=== PATIENT | female | born 1985 | race Caucasian/White ===

== ENCOUNTER 2021-07-12 23:02 | Emergency (ER) | payer SELFPAY ==
[~2021-07-12] VITALS: Ht 162.6 cm; Wt 73.0 kg
[2021-07-12] MEDS ORDERED: SODIUM CHLORIDE 0.9% 1,000 ML IV ONE (23:45)
[2021-07-13] MEDS: IBUPROFEN 600MG TABLET PO STA ×2 (00:02→00:05)
[2021-07-13 04:37] VITALS: BP 105/53
== END 2021-07-13 05:08 | disposition home or self-care (01) ==
LOC: ER 23:02
DX: U07.1 COVID-19 (principal); Z88.5 Allergy status to narcotic agent
CPT/HCPCS: 71045; 87426; 96360; 96361; 99285; J7030

== ENCOUNTER 2023-10-31 19:53 | Emergency (ER) | payer OTHER ==
[~2023-10-31] VITALS: Ht 149.9 cm; Wt 70.0 kg
[2023-10-31 19:59] VITALS: O2SAT 100
[2023-10-31] MEDS: KETOROLAC 15MG/ML VIAL IV ONE (20:49)
[2023-10-31 21:01] LABS: BASOPHILS % 0.8 % (0.0-2.0); EOSINOPHILS % 2.1 % (0.0-5.0); HEMATOCRIT. 38.4 % (36.0-48.0); HEMOGLOBIN. 13.1 g/dL (12.0-16.0); LYMPHOCYTES % 19.2 % (20.0-50.0); MEAN CORPUSCULAR HEMOGLOBIN 30.3 pg (28.0-32.0); MEAN CORPUSCULAR HGB CONC 34.2 g/dL (31.0-37.0); MEAN CORPUSCULAR VOLUME 88.8 fL (81.0-99.0); MONOCYTES % 7.6 % (2.0-8.0); NEUTROPHILS % 70.3 % (40.0-76.0); PLATELET 360 x1000/uL (130-400); RED BLOOD CELL COUNT 4.33 mill/uL (4.2-5.4); RED CELL DISTRIBUTION WIDTH 13.1 % (11.6-14.6); WHITE BLOOD COUNT 10.9 x1000/uL (4.5-11.0)
[2023-10-31 21:05] LABS: CHLORIDE 108 mEq/L (98-107); POTASSIUM 4.4 mEq/L (3.5-5.1); SODIUM 140 mEq/L (136-145)
[2023-10-31 21:06] LABS: CALCIUM 9.6 mg/dL (8.7-10.4); CARBON DIOXIDE 28 mEq/L (21-32)
[2023-10-31 21:11] LABS: CREATININE 0.7 mg/dL (0.6-1.0); GLUCOSE 103 mg/dL (70-105); UREA NITROGEN BLOOD 9 mg/dL (9-23)
[2023-10-31 21:14] LABS: HCG SCREEN NEGATIVE
[2023-10-31] MEDS: SODIUM CHLORIDE 0.9% 1,000 ML IV ONE (22:15)
[2023-10-31 22:31] LABS: CLARITY URINE CLEAR (CLEAR); COLOR URINE YELLOW (YELLOW); GLUCOSE URINE NEGATIVE (NEGATIVE); KETONES URINE NEGATIVE (NEGATIVE); LEUKOCYTE ESTERASE URINE NEGATIVE (NEGATIVE); NITRITE URINE NEGATIVE (NEGATIVE); OCCULT BLOOD URINE NEGATIVE (NEGATIVE); PH URINE 6.5 (4.5-8.0); PROTEIN URINE NEGATIVE (NEGATIVE); SPECIFIC GRAVITY URINE 1.026 (1.005-1.030); UROBILINOGEN URINE 0.2 E.U./dL (0.2-1.0)
[2023-10-31 23:17] VITALS: BP 99/48; PULSE 78; RESP 16; TEMP 98.6
== END 2023-10-31 23:20 | disposition home or self-care (01) ==
LOC: ER 19:53
DX: R10.30 Lower abdominal pain, unspecified (principal); Z88.6 Allergy status to analgesic agent; Z88.5 Allergy status to narcotic agent
CPT/HCPCS: 80048; 81003; 84703; 83690; 85025; 36415; 74177; 96360; 99285; J1885; J7030; Z7610 ×3